=== PATIENT | female | born 1955 | race Hispanic/Latino ===

== ENCOUNTER 2022-02-21 17:13 | Emergency (ER) | payer MEDICARE ==
[~2022-02-21] VITALS: Ht 149.9 cm; Wt 77.6 kg
[2022-02-21 17:27] VITALS: BP 146/64
[2022-02-21 17:51] LABS: BASOPHILS % (AUTO) 0.8 % (0.0-5.0); EOSINOPHILS % (AUTO) 3.4 % (0.0-8.0); HEMATOCRIT 48.3 % (36-48); LYMPHOCYTES % (AUTO) 18.4 % (21.0-51.0); MEAN CORPUSCULAR HGB CONC 33.1 g/dL (32.0-36.0); MEAN CORPUSCULAR VOLUME 87.5 fL (79-99); MONOCYTES % (AUTO) 7.3 % (3.0-13.0); NEUTROPHILS % (AUTO) 69.5 % (40.0-77.0); PLATELET COUNT (AUTO) 350 K/uL (130-400); RED BLOOD CELL COUNT(AUTO) 5.52 MIL/uL (4.00-5.50); RED CELL DISTRIBUTION WIDTH 13.7 % (11.0-15.5); WHITE BLOOD COUNT (AUTO) 12.7 K/uL (4.8-10.8)
[2022-02-21 18:02] LABS: CREATININE 0.8 mg/dL (0.5-1.5); POTASSIUM 4.2 mmol/L (3.5-5.1)
[2022-02-21 18:07] LABS: ALBUMIN 3.8 g/dL (3.5-5.0); TOTAL PROTEIN, SERUM 7.4 g/dL (6.0-8.3)
== END 2022-02-21 20:00 | disposition left against medical advice (07) ==
LOC: EDH 17:13
DX: R53.1 Weakness (principal); Z53.21 Procedure and treatment not carried out due to patient leaving prior to being seen by health care provider
CPT/HCPCS: 36415; 80053; 85025

== ENCOUNTER → 2022-12-29 | Outpatient (CLI) | payer MEDICARE ==
[~2022-12-29] MED LIST: CETI10TA57 PO; FENO145T26 PO; LEVO25CA4 PO; LEVO750T39 PO; METF-446 PO; MONT-39 PO; PREG150C PO; SERT50TA PO
== END | disposition home or self-care (01) ==
LOC: SHCH 11:32
PROVIDERS: ATTEND Student in an Organized Health Care Education/Training Program
DX: R06.09 Other forms of dyspnea (principal)
CPT/HCPCS: 93306

== ENCOUNTER → 2024-12-09 | Outpatient (CLI) | payer MEDICARE ==
[~2024-12-09] MED LIST changes: -LEVO25CA4 PO; +LEVO25CA5 PO; -LEVO750T39 PO; +LEVO750T90 PO
[2024-12-09 11:52] LABS: IMMATURE GRANULOCYTE ABSOLUTE 0.03 K/uL (0-1); NUCLEATED RED BLOOD CELLS 0.0 % (0.0-0.19); PLATELET COUNT (AUTO) 322 K/uL (130-400); RED BLOOD CELL COUNT(AUTO) 4.78 MIL/uL (4.00-5.50); RED CELL DISTRIBUTION WIDTH 15.1 % (11.0-15.5); WHITE BLOOD COUNT (AUTO) 7.1 K/uL (4.8-10.8)
[2024-12-09 12:01] LABS: INR 1.01 (0.85-1.15)
[2024-12-09 12:15] LABS: ASPARTATE AMINOTRANSFERASE 15.0 U/L (10-37); CREATININE 1.0 mg/dL (0.5-1.0); GLOMERULAR FILTR. RATE CALC 62.0 mL/min (>90); GLUCOSE,RANDOM 158.0 mg/dL (70-105); SODIUM SERUM 143.0 mmol/L (136-145); TOTAL PROTEIN, SERUM 7.7 g/dL (6.0-8.3); UREA NITROGEN, BLOOD 13.0 mg/dL (7-18)
== END | disposition home or self-care (01) ==
LOC: LAB 10:55
PROVIDERS: ATTEND Surgery
DX: C20 Malignant neoplasm of rectum (principal); Z51.81 Encounter for therapeutic drug level monitoring
CPT/HCPCS: 36415; 80053; 85025; 85610

== ENCOUNTER 2024-12-13 09:31 | Day surgery (SDC) | payer MEDICARE ==
[2024-12-13 11:06] VITALS: BP 147/54; PULSE 75; RESP 16; TEMP 97.7
[2024-12-13] MEDS ORDERED: DIATR MEGLU/DIATRIZOATE SODIUM 30 ML BOTTLE ONE (11:46)
[2024-12-13 13:10] VITALS: BP 129/52; PULSE 72; RESP 18; TEMP 97.6
--- NOTE | 2024-12-13 13:10 | NUR ---
CT GD RECTUM BX PROCEDURE PERFORMED BY DR Davion FORBES. PUNCTURE SITE MID UPPER BUTTOCK AND PATIENT TOLERATED PROCEDURE WELL. SPECIMEN X 3 COLLECTED AND SENT TO LAB. END OF PROCEDURE AT 1220. BIOPSY NEEDLE REMOVED AND DRESSING APPLIED. BLEEDING AND BLOOD CLOTS NOTED POST BIOPSY IN PELVIC REGION. CT SCAN OF PELVIS DONE AND IMAGED REVIEWED BY DR Davion FORBES. NO BLEEDING NOTED ON IMAGING. PATIENT STATED SHE HAS OCCASIONAL EPISODES OF VAGINAL BLEEDING. PATIENT'S PERITONEUM WIPED AND CLEANED AND A PAD APPLIED. PATIENT COMFORTABLE WITH NO DISCOMFORT. REPORT GIVEN TO [facility] AND PATIENT TRANSPORTED TO DAY PATIENT ROOM 1 VIA BED AT 1310. AAO X3 WITH NO C/O PAIN.
[2024-12-13] MEDS: MIDAZOLAM HCL 1 MG/ML 2ML VIAL ONE (13:20)
[2024-12-13 13:25] VITALS: BP 129/50; PULSE 71; RESP 16
[2024-12-13 13:40] VITALS: BP 122/63; PULSE 69; RESP 16
[2024-12-13 13:55] VITALS: BP 120/60; PULSE 71; RESP 14
--- NOTE | 2024-12-13 14:14 | NUR ---
Back Biopsy site without sign of bleeding bruising or hematoma. Dressing remains clean and dry. Drsg to lower back clean and dry. No sign of hematoma.. Patient and Family instructed on importance of keeping eye on site and POC until discharge. Both voiced understanding in full. W/C to POC with to home.
--- NOTE | 2024-12-14 13:04 | HMCIMG ---
PERCUTANEOUS CT-GUIDED BIOPSY OF a rectal mass: CLINICAL HISTORY: This is a [id number] Female with abdominal perineal resection with soft tissue mass at the site of the rectum. for CT-guidedbiopsy of rectal mass. The risk and benefit was explained to the patient. The risks include infection and possible bleed. The patient consented to the procedure. PROCEDURE: Under CT guidance rectal lesion was localized. After sterile prep and drapa, using 1% xylocaine for local anesthetic, using a 18-gauge Bard gun, a total of 3 core biopsies were obtained. The specimen was sent for histology and cell block. The patient tolerated the procedure and post-biopsy demonstrated no bleed. IMPRESSION: PERCUTANEOUS CT-GUIDED BIOPSY OF a rectal mass WITH SPECIMENS SENT FOR Histology and cell block. THE PATIENT TOLERATED PROCEDURE WELL. PATHOLOGY REPORT IS PENDING.
== END 2024-12-13 14:20 | disposition home or self-care (01) ==
LOC: DAH 09:31
PROVIDERS: ATTEND Surgery
DX: C20 Malignant neoplasm of rectum (principal); I10 Essential (primary) hypertension; E78.5 Hyperlipidemia, unspecified; E11.40 Type 2 diabetes mellitus with diabetic neuropathy, unspecified; E03.9 Hypothyroidism, unspecified; M79.7 Fibromyalgia; J45.909 Unspecified asthma, uncomplicated; M19.90 Unspecified osteoarthritis, unspecified site; Z93.2 Ileostomy status; Z85.038 Personal history of other malignant neoplasm of large intestine; Z79.890 Hormone replacement therapy; Z79.899 Other long term (current) drug therapy; Z98.890 Other specified postprocedural states
CPT/HCPCS: 82948; 88305; 77012; 49180; 99152; 99153; A4223 ×3; Q9963; J3010; J2250; A4215; A4222; A4221; A4663; A4216; A4606; G0500